=== PATIENT | female | born 1975 | race Hispanic/Latino ===

== ENCOUNTER 2016-08-10 10:24 | Outpatient (CLI) | payer OTHER ==
--- NOTE | 2016-08-11 11:14 | Ultrasound Report ---
THYROID ULTRASOUND:08/10/16 10:24:00 CLINICAL: Goiter. FINDINGS: High-resolution ultrasound demonstrated a mildly enlarged thyroid with a diffuse heterogeneous micronodular echo pattern. The right lobe measures 4.8 x 2.4 x 1.8cm. The left lobe measures 4.9 x 2.0 x 2.1. The isthmus measures 4 mm in AP thickness. A solid oval heterogeneous hypoechoic posterior left lower pole nodule measures 1.3 x 1.0 x 1.0 cm. No other measurable nodules. IMPRESSION: A mildly enlarged thyroid with a diffuse micronodular pattern and a dominant 1.3 cm nodule.
== END 2016-08-10 10:25 | disposition home or self-care (01) ==
LOC: SPVWC 10:24
PROVIDERS: ATTEND Family Medicine
DX: E04.9 Nontoxic goiter, unspecified (principal)
CPT/HCPCS: 76536